=== PATIENT | male | born 2000 | race Caucasian/White ===

== ENCOUNTER 2020-10-03 12:36 | Outpatient (REF) | payer BC, SELFPAY ==
[2020-10-03 19:40] LABS: TSH (W/Ref FT4) 3.78 uIU/mL (0.36-3.74)
[2020-10-03 20:24] LABS: FREE T4 1.13 ng/dL (0.76-1.46)
[2020-10-03 20:45] LABS: Hemoglobin A1C 5.2 % (<5.7)
== END 2020-10-03 12:56 ==
LOC: NCHCN 12:36
PROVIDERS: PCP Family Medicine; Visit Provider Family Medicine
DX: R63.5 Abnormal weight gain (principal)
CPT/HCPCS: 83036; 84439; 84443

== ENCOUNTER 2022-02-26 16:11 | Outpatient (REF) | payer BC, SELFPAY ==
[2022-02-28 10:54] LABS: Hepatitis C Ab w Rflx HCV PCR Negative (Negative)
[2022-02-28 11:13] LABS: HIV-1/2 Ag & Ab Screen Negative (Negative)
== END 2022-02-26 16:12 | disposition home or self-care (01) ==
LOC: NCHCN 16:11
PROVIDERS: PCP Family Medicine; Visit Provider Family Medicine
DX: Z00.00 Encounter for general adult medical examination without abnormal findings (principal); R19.7 Diarrhea, unspecified; R10.9 Unspecified abdominal pain; Z11.4 Encounter for screening for human immunodeficiency virus [HIV]; Z11.59 Encounter for screening for other viral diseases
CPT/HCPCS: 80053; 85027; 86803; 87389; 83036; 84443

== ENCOUNTER 2022-09-03 15:29 | Outpatient (REF) | payer BC, SELFPAY ==
[2022-09-03 19:39] LABS: HCT 44.8 % (40.0-50.0); HGB 15.4 g/dL (13.5-17.5); MCH 30.1 pg (27.0-33.0); MCHC 34.4 % (32.0-36.0); MCV 88 fL (80-95); MPV 9.7 fL (8.0-11.0); Platelet Count 243 10^3/uL (130-400); RBC 5.11 10^6/uL (4.36-5.78); RDW 11.6 % (11.8-14.1); RDW-SD 37.3 fL; WBC 6.49 10^3/uL (4.4-10.8)
[2022-09-03 19:59] LABS: ALT 69 U/L (16-63); AST 33 U/L (15-37); Albumin 4.7 g/dL (3.4-5.0); Alkaline Phosphatase 72 U/L (46-116); Anion Gap 6.2 mmol/L (3-11); BUN 11 mg/dL (7-18); Bilirubin, Total 1.1 mg/dL (0.2-1.0); CO2 30.8 mmol/L (21.0-32.0); CREATININE 1.2 mg/dL (0.70-1.30); Calcium 9.3 mg/dL (8.5-10.1); Chloride 101 mmol/L (98-107); Estimated GFR 87.69 (mL/min/1.73m2); Glucose 93 mg/dL (74-106); Sodium 138 mmol/L (136-145); TSH (W/Ref FT4) 2.16 uIU/mL (0.36-3.74); Total Protein 8.9 g/dL (6.4-8.2)
[2022-09-03 20:41] LABS: Hemoglobin A1C 5.2 % (<5.7)
== END 2022-09-03 15:30 | disposition home or self-care (01) ==
LOC: NCHCN 15:29
PROVIDERS: PCP Family Medicine; Visit Provider Family Medicine
DX: Z00.00 Encounter for general adult medical examination without abnormal findings (principal); R19.7 Diarrhea, unspecified; R10.9 Unspecified abdominal pain; R79.89 Other specified abnormal findings of blood chemistry
CPT/HCPCS: 80053; 85027; 83036; 84443

== ENCOUNTER 2022-10-03 18:19 | Outpatient (REF) | payer BC, SELFPAY ==
[2022-10-03 18:39] LABS: Iron 113 ug/dL (65-175); Total Iron Binding Capacity 348 ug/dL (250-450); Transferrin Sat 32 % (20-55)
[2022-10-03 18:52] LABS: ALT 78 U/L (16-63); AST 38 U/L (15-37); Albumin 4.3 g/dL (3.4-5.0); Alkaline Phosphatase 70 U/L (46-116); Bilirubin, Total 0.9 mg/dL (0.2-1.0); Ferritin 125 ng/mL (26-388); Total Protein 8.4 g/dL (6.4-8.2)
[2022-10-03 19:00] LABS: Bilirubin, Direct 0.1 mg/dL (0.0-0.2)
[2022-10-06 11:04] LABS: Hepatitis A Antibody IgM Negative (Negative); Hepatitis B Core Antibody Negative (Negative); Hepatitis B surface Ag Negative (Negative); Hepatitis C Ab w Rflx HCV PCR Negative (Negative)
== END 2022-10-03 18:20 | disposition home or self-care (01) ==
LOC: NCHCN 18:19
PROVIDERS: PCP Family Medicine; Visit Provider Family Medicine
DX: R79.89 Other specified abnormal findings of blood chemistry (principal)
CPT/HCPCS: 80076; 86704; 86709; 86803; 87340; 82728; 83540; 83550

== ENCOUNTER 2022-11-17 17:00 | Outpatient (REF) | payer BC, SELFPAY ==
[2022-11-19 10:03] LABS: Alpha 1 Antitrypsin,Serum 99 mg/dL (90-200)
[2022-11-19 13:16] LABS: Albumin 59.2 % (55.8-66.1); Albumin g/dL 4.8 g/dL (3.6-5.2); Total Protein 8.1 g/dL (6.3-8.2)
[2022-11-19 14:16] LABS: ANA Interpretation Negative (Negative)
[2022-11-19 15:19] LABS: Ceruloplasmin 19.7 mg/dL
[2022-11-20 12:23] LABS: Liver/Kidney Microsome Type 1 <5.0 U; Smooth Muscle Ab Screen Negative (Negative)
== END 2022-11-17 17:01 | disposition home or self-care (01) ==
LOC: NCHCN 17:00
PROVIDERS: PCP Family Medicine; Visit Provider Family Medicine
DX: R79.89 Other specified abnormal findings of blood chemistry (principal)
CPT/HCPCS: 82390; 82103; 84165; 86038; 86255